=== PATIENT | female | born 1970 | race Caucasian/White ===

== ENCOUNTER 2021-01-12 15:55 | Emergency (ER) | payer OTHER ==
[~2021-01-12] VITALS: Ht 170.2 cm; Wt 78.0 kg
[2021-01-12 16:30] VITALS: BP 132/98
[2021-01-12] MEDS ORDERED: HYDROcodone/APAP 10/325 1 TAB TABLET PO ONE (19:00)
--- NOTE | 2021-01-12 20:29 | PHYS DOC ---
Past History Past Medical History: Anxiety, COPD, Hypothyroid Additional Past Medical Histor: ptsd (RODRIGO KUMAR APRN) Past Surgical History: Cholecystectomy, Tubal ligation, Other Additional Past Surgical Histo: thyroid (RODRIGO KUMAR APRN) Alcohol Use: None (RODRIGO KUMAR APRN) General Adult EDM: Chief Complaint: BACK PAIN OR INJURY HPI: HPI: Patient is a 50 year-old female who presents with chronic neck pain from an injury in 1999. Patient states that her pain management doctor has closed and she just moved here from [place] and does not have a PCP. Patient's pain is is chronic and no new changes. No trauma or new injury. "I have been miserable since last night and ibuprofen is not helping with the pain". Patient denies having PCP and requesting a list of doctors. (RODRIGO KUMAR APRN) Review of Systems: Review of Systems: Constitutional: Denies fever or chills Eyes: Denies change in visual acuity HENT: Denies nasal congestion or sore throat Respiratory: Denies cough or shortness of breath Cardiovascular: Denies chest pain or edema GI: Denies abdominal pain, nausea, vomiting, bloody stools or diarrhea : Denies dysuria Musculoskeletal: Denies back pain or joint pain Integument: Denies rash Neurologic: Denies headache, focal weakness or sensory changes Endocrine: Denies polyuria or polydipsia Lymphatic: Denies swollen glands Psychiatric: Denies depression or anxiety (RODRIGO KUMAR APRN) Current Medications: Current Meds: Current Medications Medications (Trade) Dose Ordered Sig/Trino Start Time Stop Time Status Last Admin Dose Admin Acetaminophen/ Hydrocodone Bitart (Lortab 10/325) 1 tab 1X ONCE 01/12/21 19:00 01/12/21 19:01 DC 01/12/21 19:00 1 TAB (RODRIGO KUMAR APRN) Allergies: Allergies: Allergies Coded Allergies Type Severity Reaction Last Updated Verified amitriptyline Allergy Unknown 01/12/21 Yes (RODRIGO KUMAR APRN) Physical Exam: PE: Constitutional: Well developed, well nourished, no acute distress, non-toxic appearance. [] HENT: Normocephalic, atraumatic, bilateral external ears normal, oropharynx moist, no oral exudates, nose normal. [] Eyes: PERRLA, EOMI, conjunctiva normal, no discharge. [] Neck: Normal range of motion, chronic tenderness and pain Cardiovascular:Heart rate regular rhythm, no murmur [] Lungs & Thorax: Bilateral breath sounds clear to auscultation [] Abdomen: Bowel sounds normal, soft, no tenderness, no masses, no pulsatile masses. [] Skin: Warm, dry, no erythema, no rash. [] Back: No tenderness, no CVA tenderness. [] Extremities: No tenderness, no cyanosis, no clubbing, ROM intact, no edema. [] Neurologic: Alert and oriented X 3, normal motor function, normal sensory function, no focal deficits noted. [] Psychologic: Affect normal, judgement normal, mood normal. [] (RODRIGO KUMAR APRN) Current Patient Data: Vital Signs: Vital Signs Date Time Temp Pulse Resp B/P (MAP) Pulse Ox O2 Delivery O2 Flow Rate FiO2 01/12/21 19:00 95 Room Air 01/12/21 16:30 99.1 92 18 132/98 (109) (RODRIGO KUMAR APRN) EKG: EKG: [] (RODRIGO KUMAR APRN) Radiology/Procedures: Radiology/Procedures: [] (RODRIGO KUMAR APRN) Heart Score: Risk Factors: Risk Factors: DM, Current or recent (<one month) smoker, HTN, HLP, family history of CAD, obesity. Risk Scores: Score 0 - 3: 2.5% MACE over next 6 weeks - Discharge Home Score 4 - 6: 20.3% MACE over next 6 weeks - Admit for Clinical Observation Score 7 - 10: 72.7% MACE over next 6 weeks - Early Invasive Strategies (RODRIGO KUMAR APRN) Course & Med Decision Making: Course & Med Decision Making Pertinent Labs and Imaging studies reviewed. (See chart for details) []Patient is a 50 year-old female who presents with chronic neck pain from an injury in 1999. Patient states that her pain management doctor has closed and she just moved here from [place] and does not have a PCP. Patient's pain is is chronic and no new changes. No trauma or new injury. "I have been miserable since last night and ibuprofen is not helping with the pain". Patient denies having PCP and requesting a list of doctors. Patient is here for pain control. Patient states that she normally takes hydrocodone which helps with the pain. Patient states she was in pain management but her doctor has closed. And she just moved here from [place] and does not have an established PCP. Patient given hydrocodone in the emergency room. explained to patient that she cannot have a prescription for any pain medication and that she will need to establish care with a PCP and follow-up with them. Patient was given hydrocodone. Patient left prior to receiving paperwork and reassessment of pain. (RODRIGO KUMAR APRN) Course & Med Decision Making Did not see or evaluate patient. Discussed patient with [employer]. Agree with work-up and disposition. (JOSE CLEMENTE MD) Dragon Disclaimer: Dragon Disclaimer: This electronic medical record was generated, in whole or in part, using a voice recognition dictation system. (RODRIGO KUMAR APRN) Departure Departure: Impression: Primary Impression: Neck pain Disposition: 01 DC HOME SELF CARE/HOMELESS Condition: STABLE Referrals: NON,STAFF (PCP) RODRIGO KUMAR APRN Jan 12, 2021 20:29 JOSE CLEMENTE MD Jan 13, 2021 02:19
== END 2021-01-12 19:35 | disposition home or self-care (01) ==
LOC: ER 15:55
DX: M54.2 Cervicalgia (principal); F41.9 Anxiety disorder, unspecified; J44.9 Chronic obstructive pulmonary disease, unspecified; E03.9 Hypothyroidism, unspecified; Z98.51 Tubal ligation status; Z90.49 Acquired absence of other specified parts of digestive tract; Z98.890 Other specified postprocedural states; Z88.8 Allergy status to other drugs, medicaments and biological substances
CPT/HCPCS: 99284